=== PATIENT | male | born 1965 | race African-American/Black ===

== ENCOUNTER → 2021-02-23 | Outpatient (CLI) | payer BC ==
[2021-02-23 06:46] LABS: HEMOGLOBIN 13.4 gm/dl (14.0-17.5); RED BLOOD COUNT 4.24 M/UL (4.20-5.50); WHITE BLOOD COUNT 6.5 K/UL (4.5-11.0)
[2021-02-24 08:14] LABS: THYROXINE (T4) 5.6 ug/dL (4.5-12.0)
[2021-02-24 09:14] LABS: VITAMIN D, 25-HYDROXY 4.9 ng/mL (30.0-100.0)
== END ==
LOC: LAB 06:00
PROVIDERS: Nurse Practitioner Family
DX: I10 Essential (primary) hypertension (principal); R53.82 Chronic fatigue, unspecified; Z85.9 Personal history of malignant neoplasm, unspecified; Z90.5 Acquired absence of kidney
CPT/HCPCS: 36415; 80053; 80061; 81001; 84153; 84436; 84443; 84480; 85025

== ENCOUNTER → 2021-04-08 | Outpatient (CLI) | payer BC | LOC: LAB 15:20 | PROVIDERS: Internal Medicine Nephrology | DX: N18.9 Chronic kidney disease, unspecified (principal) | CPT/HCPCS: 36415; 80053; 81001; 82043; 82570; 84156 ==